=== PATIENT | female | born 1980 | race American Indian/Alaskan Native ===

== ENCOUNTER 2021-01-13 18:45 | Emergency (ER) | payer OTHER ==
--- NOTE | 2021-01-13 18:50 | Event Note ---
ED Screening Note ED Screening Note: Patient presents for asthma exacerbation that has been ongoing for 3 days She has associated cough with mucus production, shortness of breath, wheezing She has been vaccinated for COVID-19 States that she has been out of her nebulizer solution for her breathing treatment for approximately a month Audibly wheezing This initial assessment/diagnostic orders/clinical plan/treatment(s) is/are subject to change based on patients health status, clinical progression and re- assessment by fellow clinical providers in the ED. Further treatment and workup at subsequent clinical providers discretion. Patient/guardian urged not to elope from the ED as their condition may be serious if not clinically assessed and managed. Initial orders include: X-ray, meds
[2021-01-13 18:51] VITALS: BP 151/101
[2021-01-13] MEDS ORDERED: IPRATROPIUM 0.02% NEBU 2.5 ML IH ONE (19:00)
[2021-01-13] MEDS ORDERED: ALBUTEROL 2.5 MG/3 ML NEBU IH ONE ×2 (19:00→21:23)
[2021-01-13] MEDS ORDERED: methylPREDNISolone Sod Succinate 125 MG/2 ML INJ IV ONE (19:00)
--- NOTE | 2021-01-13 19:19 | Emergency Department Report ---
ED General Adult HPI - General Chief complaint: Dyspnea/Respdistress Stated complaint: SOB COUGH Time Seen by Provider: 01/13/21 18:47 Source: patient Mode of arrival: Ambulatory Limitations: No Limitations - History of Present Illness Initial comments: Patient is a 40 y/o aaf with hx of Asthma who presents for asthma exacerbation that has been ongoing for 3 days. She has associated cough with mucus production, shortness of breath, wheezing. She has been vaccinated for COVID- 19. States that she has been out of her nebulizer solution for her breathing treatment for approximately a month. Pt denies fever or chills, no n/v, no cp. pt denies other dx hx. She rates symptoms at 7/10 for her Asthma. - Related Data Previous Rx's Medication Instructions Recorded Last Taken Type ALBUTEROL NEB's [Proventil 0.083% 2.5 mg IH Q6H PRN #25 vial 01/13/21 Unknown Rx NEBS] Albuterol Mdi (or & Nicu Only) 2 puff IH QID PRN #8.5 gram 01/13/21 Unknown Rx [ProAir HFA Inhaler] Azithromycin 500 mg PO DAILY #5 tablet 01/13/21 Unknown Rx Codeine Phosphate/Guaifenesin 5 ml PO Q6H PRN #120 ml 01/13/21 Unknown Rx [Guaifenesin-Codeine Syrup] predniSONE [Deltasone] 40 mg PO QDAY 5 Days #10 tab 01/13/21 Unknown Rx Allergies Allergy/AdvReac Type Severity Reaction Status Date / Time No Known Allergies Allergy Unverified 01/13/21 18:48 ED Review of Systems ROS: Stated complaint: SOB COUGH Other details as noted in HPI Constitutional: malaise Eyes: denies: eye pain, eye discharge, vision change ENT: denies: ear pain, throat pain Respiratory: cough, shortness of breath, SOB with exertion, wheezing Cardiovascular: denies: chest pain, palpitations Endocrine: no symptoms reported Gastrointestinal: denies: abdominal pain, nausea, vomiting, diarrhea Genitourinary: denies: urgency, dysuria, discharge Musculoskeletal: denies: back pain, joint swelling, arthralgia Skin: denies: rash, lesions Neurological: denies: headache, weakness, paresthesias, vertigo Psychiatric: as per HPI Hematological/Lymphatic: denies: easy bleeding, easy bruising ED Past Medical Hx - Past Medical History Previous Medical History?: Yes Hx Hypertension: Yes Hx Asthma: Yes - Surgical History Past Surgical History?: Yes Additional Surgical History: cosmetic - Medications Home Medications: Home Medications Medication Instructions Recorded Confirmed Last Taken Type ALBUTEROL NEB's [Proventil 0.083% 2.5 mg IH Q6H PRN #25 vial 01/13/21 Unknown Rx NEBS] Albuterol Mdi (or & Nicu Only) 2 puff IH QID PRN #8.5 gram 01/13/21 Unknown Rx [ProAir HFA Inhaler] Azithromycin 500 mg PO DAILY #5 tablet 01/13/21 Unknown Rx Codeine Phosphate/Guaifenesin 5 ml PO Q6H PRN #120 ml 01/13/21 Unknown Rx [Guaifenesin-Codeine Syrup] predniSONE [Deltasone] 40 mg PO QDAY 5 Days #10 tab 01/13/21 Unknown Rx ED Physical Exam - General Limitations: No Limitations General appearance: alert, in no apparent distress - Head Head exam: Present: atraumatic, normocephalic - Eye Eye exam: Present: normal appearance, EOMI Pupils: Present: normal accommodation - ENT ENT exam: Present: normal orophraynx, mucous membranes moist - Neck Neck exam: Present: normal inspection, full ROM. Absent: tenderness, lymphadenopathy - Respiratory Respiratory exam: Present: wheezes, accessory muscle use, prolonged expiratory. Absent: rales, rhonchi, stridor, chest wall tenderness - Cardiovascular Cardiovascular Exam: Present: normal rhythm, tachycardia, normal heart sounds - GI/Abdominal GI/Abdominal exam: Present: soft, normal bowel sounds. Absent: tenderness, guarding - Rectal Rectal exam: Present: deferred - Extremities Exam Extremities exam: Present: normal inspection, full ROM. Absent: tenderness, pedal edema - Back Exam Back exam: Present: normal inspection, full ROM. Absent: CVA tenderness (R), CVA tenderness (L) - Neurological Exam Neurological exam: Present: alert, oriented X3, CN II-XII intact, normal gait - Psychiatric Psychiatric exam: Present: normal affect, normal mood - Skin Skin exam: Present: warm, dry, intact, normal color. Absent: rash ED Course Vital Signs 01/13/21 18:49 Temperature 98.7 F Pulse Rate 107 H Respiratory 32 H Rate Blood Pressure 151/101 [Right] O2 Sat by Pulse 100 Oximetry - Reevaluation(s) Reevaluation #1: Solumedrol 125mg IV, albuterol neb 10mg, ipratropium neb 1mg, CXR, INT. Resp : audible wheezing, moderate work or breathing, will continue to monitor pt status. 01/13/21 19:19 01/13/21 21:23 Resp improved , moderate exp wheezing, pt is speaking in full sentences, ambulatory with minimal increase in wheezing, plan: repeat albuterol neb, continue to monitor. There is no fever , cxr: normal no infiltrate no opacities. pt with nad at this time. advises symptoms are improved. ED Medical Decision Making - Radiology Data Radiology results: report reviewed, image reviewed CHEST 1 VIEW INDICATION: SOB, wheezing, cough. COMPARISON: None FINDINGS: SUPPORT DEVICES: None. HEART: Within normal limits. LUNGS/PLEURA: No acute air space or interstitial disease. ADDITIONAL FINDINGS: None. IMPRESSION: 1. No acute findings. Signer Name: Robin Avalos MD Signed: 01/13/2021 7:13 PM Workstation Name: [id number] Transcribed By: DANNY Dictated By: Robin Avalos MD Electronically Authenticated By: Robin Avalos MD Signed Date/Time: 01/13/211912 DD/ 12 TD/TT: Print - Medical Decision Making Symptoms now much improved. Expiratory wheezing is resolved. Patient is ambulatory from room to the front of ER and back to room without increased wheezing. Patient states breathing at baseline ready for DC to home. Plan DC to home with prescriptions. Patient given strict instructions to return to ED should symptoms worsen. O2 sat currently 100% on room air. Heart rate 101, Resp: 20. Will refill asthma medications. Patient will follow-up with primary care in 2 to 3 days. And return to ED should symptoms worsen. Critical care attestation.: If time is entered above; I have spent that time in minutes in the direct care of this critically ill patient, excluding procedure time. ED Disposition Clinical Impression: Asthma exacerbation Qualifiers: Asthma severity: moderate Asthma persistence: unspecified Qualified Code(s): J45.901 - Unspecified asthma with (acute) exacerbation Disposition: HOME / SELF CARE / HOMELESS Is pt being admited?: No Does the pt Need Aspirin: No Condition: Stable Instructions: Asthma, Adult, Asthma Attack Prevention, Adult Additional Instructions: Take all medications as prescribed. Follow-up with your primary care doctor in 2 to 3 days. Return to ED should symptoms worsen. Prescriptions: Azithromycin 500 mg PO DAILY #5 tablet predniSONE [Deltasone] 40 mg PO QDAY 5 Days #10 tab Codeine Phosphate/Guaifenesin [Guaifenesin-Codeine Syrup] 5 ml PO Q6H PRN #120 ml PRN Reason: Cough Albuterol Mdi (or & Nicu Only) [ProAir HFA Inhaler] 2 puff IH QID PRN #8.5 gram PRN Reason: Shortness Of Breath ALBUTEROL NEB's [Proventil 0.083% NEBS] 2.5 mg IH Q6H PRN #25 vial PRN Reason: wheezing, shortness of breathe Referrals: SHANNAN KRISHNAN MD [Primary Care Provider] - 3-5 Days ZENA VALENCIA MD [Referring] - 3-5 Days Forms: Work/School Release Form(ED) Time of Disposition: 22:48
[2021-01-13] MEDS ORDERED: ONDANSETRON 4 MG ODT TAB PO ONE (19:41)
[2021-01-13] MEDS ORDERED: MAGNESIUM SULFATE 2 GM/50 ML BAG IV ONE (19:41)
[2021-01-13] MEDS ORDERED: ACETAMINOPHEN W/CODEINE 300-30 MG TAB PO ONE (21:52)
== END 2021-01-13 23:30 | disposition home or self-care (01) ==
LOC: ED 18:45
DX: J45.901 Unspecified asthma with (acute) exacerbation (principal); I10 Essential (primary) hypertension; J45.909 Unspecified asthma, uncomplicated; Z79.899 Other long term (current) drug therapy; Z98.890 Other specified postprocedural states
CPT/HCPCS: 71045; 94640; 96365; 96375; 99284; J2930; J3475; Q0162